=== PATIENT | female | born 1955 | race Hispanic/Latino ===

== ENCOUNTER → 2018-06-12 | Outpatient (CLI) | payer BC ==
[~2018-06-12] MED LIST: FENTANYL CITRATE/PF 100MCG/2 ML INJ ONE; GELATIN SPONGE 12-7MM ONE; LIDOCAINE HCL 1% LOCAL INJ 20 ML VIAL ONE; MIDAZOLAM HCL 2 MG/2 ML VIAL ONE
[2018-06-12 08:33] LABS: INR 1.11; PROTHROMBIN TIME 13.5 seconds (11.9-14.5)
[2018-06-12 08:34] LABS: PARTIAL THROMBOPLASTIN TIME 40.5 seconds (23.8-35.5)
--- NOTE | 2018-06-12 10:53 | Diagnostic Imaging Report ---
PROCEDURE:US GUIDANCE FOR BIOPSY (NON FOCAL LIVER) COMPARISON:None. INDICATIONS: Autoimmune Hepatitis FINDINGS/CONCLUSION: Ultrasound guided non-focal liver biopsy performed. Please refer to liver biopsy report for further details. Dictated by: ANISA VICENTE M.D. on 06/12/2018 at 10:59 Electronically approved by: ANISA VICENTE M.D. on 06/12/2018 at 10:59
--- NOTE | 2018-06-12 10:57 | Diagnostic Imaging Report ---
PROCEDURE:Ultrasound guided non-focal liver biopsy COMPARISON:None. INDICATIONS:Autoimmune Hepatitis MEDICATIONS: IV Fentanyl per nursing administration records; 10 cc of 1% subcutaneous lidocaine COMPLICATIONS: No immediate complications SAMPLES: Four core biopsy samples were obtained. FINDINGS: After informed consent was obtained, the patient was placed in the right anterior oblique position. A safe entry route into the right lobe of the liver was identified by ultrasound and the overlying skin was prepped and draped in usual sterile fashion. Lidocaine 1% was delivered for local anesthesia. Under ultrasound guidance, a 17 gauge introducer needle was advanced into the right lobe of the liver. Four passes with an 18 gauge core biopsy gun were obtained and sent to pathology for analysis. Gelfoam embolization was performed. The introducer needle was removed. Post-procedure sonographic images of the liver showed no perihepatic hematoma. The patient tolerated the procedure well and there were no immediate post-procedural complications. The patient was transferred in good condition to the recovery area for observation. CONCLUSION: Ultrasound guided non-focal liver biopsy as above. Samples sent to Pathology for analysis. Dictated by: ANISA VICENTE M.D. on 06/12/2018 at 11:02 Electronically approved by: ANISA VICENTE M.D. on 06/12/2018 at 11:02
== END ==
LOC: US 07:59
PROVIDERS: ATTEND Internal Medicine Gastroenterology
DX: K75.4 Autoimmune hepatitis (principal)
CPT/HCPCS: 36415; 47000; 76942; 85049; 85610; 85730; 88307; J2001; J2250

== ENCOUNTER → 2021-02-15 | Outpatient (CLI) | payer OTHER | LOC: RAD 11:07 | PROVIDERS: ATTEND Internal Medicine | DX: M47.816 Spondylosis without myelopathy or radiculopathy, lumbar region (principal) | CPT/HCPCS: 72110; 72220 ==